=== PATIENT | male | born 1995 | race Caucasian/White ===

== ENCOUNTER 2017-04-30 19:01 | Emergency (ER) | payer BC ==
[2017-04-30 19:05] VITALS: BP 135/71; PULSE 83; TEMP 98; BMI 25.7
--- NOTE | 2017-04-30 20:21 | PDOC ---
History of Present Illness - General History Source: Patient Exam Limitations: No Limitations - History of Present Illness Initial Comments: 04/30/17 20:30 The patient is a 22 year old male, with no significant past medical history, who presents to the emergency department with, progressively worsening right hand pain for approx. 6 hours. 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 The patient reports icing his right hand up until arrival. However, he reports the right hand pain has been progressively worse. The patient states the right hand pain feels similar to a previous boxers fracture he experienced approx. 7 years ago. He denies any numbness, tingling or loss of sensation. He denies any recent head injury or loss of consciousness. He denies any recent chest pain or shortness of breath. Allergies: NKA <Griffin Aggarwal - Last Filed: 04/30/17 20:36> <Anne Marie Smith - Last Filed: 05/01/17 04:22> - General Chief Complaint: Pain, Acute Stated Complaint: R HAND PAIN Time Seen by Provider: 04/30/17 19:18 Past History <Griffin Aggarwal - Last Filed: 04/30/17 20:36> - Past Medical History COPD: No GI Disorders: Yes (ACID REFLUX,CONSTIPATION) - Immunization History Immunization Up to Date: Yes - Suicide/Smoking/Psychosocial Hx Smoking Status: No Smoking History: Unknown if ever smoked Have you smoked in the past 12 months: No Number of Cigarettes Smoked Daily: 0 Information on smoking cessation initiated: No Hx Alcohol Use: No Drug/Substance Use Hx: No Substance Use Type: Alcohol <Anne Marie Smith - Last Filed: 05/01/17 04:22> - Past Medical History Allergies/Adverse Reactions: Allergies Allergy/AdvReac Type Severity Reaction Status Date / Time No Known Allergies Allergy Verified 11/15/14 08:15 Home Medications: Ambulatory Orders NK [No Known Home Medication] 04/30/17 Review of Systems - Review of Systems Comments:: 04/30/17 20:30 GENERAL/CONSTITUTIONAL: No fever or chills. No weakness. HEAD, EYES, EARS, NOSE AND THROAT: No change in vision. No ear pain or discharge. No sore throat. CARDIOVASCULAR: No chest pain or shortness of breath. RESPIRATORY: No cough, wheezing, or hemoptysis. GASTROINTESTINAL: No nausea, vomiting, diarrhea or constipation. GENITOURINARY: No dysuria, frequency, or change in urination. MUSCULOSKELETAL: +Right hand swelling and pain. No neck or back pain. SKIN: No rash NEUROLOGIC: No headache, vertigo, loss of consciousness, or change in strength/ sensation. ENDOCRINE: No increased thirst. No abnormal weight change. HEMATOLOGIC/LYMPHATIC: No anemia, easy bleeding, or history of blood clots. ALLERGIC/IMMUNOLOGIC: No hives or skin allergy. <Griffin Aggarwal - Last Filed: 04/30/17 20:36> *Physical Exam - Vital Signs Last Vital Signs Temp Pulse Resp BP Pulse Ox 98 F 83 14 135/71 100 04/30/17 19:03 04/30/17 19:03 04/30/17 19:03 04/30/17 19:03 04/30/17 19:03 - Physical Exam Comments: 04/30/17 20:31 GENERAL: Awake, alert, and fully oriented, in no acute distress HEAD: No signs of trauma EYES: PERRLA, EOMI, sclera anicteric, conjunctiva clear ENT: Auricles normal inspection, hearing grossly normal, nares patent, oropharynx clear without exudates. Moist mucosa NECK: Normal ROM, supple, no lymphadenopathy, JVD, or masses EXTREMITIES: +Mild edema of the dorsum of the right hand with mild tenderness at the base of the third and fourth metacarpal bones without deformity or ecchymosis. +Pain with extension and flexion of the fingers of the right hand. Remainder of the extremity exam is normal. NEUROLOGICAL: Cranial nerves II through XII grossly intact. Normal speech, normal gait SKIN: Warm, Dry, normal turgor, no rashes or lesions noted. <Griffin Aggarwal - Last Filed: 04/30/17 20:36> - Vital Signs Last Vital Signs Temp Pulse Resp BP Pulse Ox 98 F 83 14 135/71 100 04/30/17 19:03 04/30/17 19:03 04/30/17 19:03 04/30/17 19:03 04/30/17 19:03 <Anne Marie Smith - Last Filed: 05/01/17 04:22> ED Treatment Course - RADIOLOGY Radiograph Interpretation: 04/30/17 20:37 EXAM#: TYPE/EXAM: RESULT: [id number] RAD/HAND- RIGHT Right hand 3 views Clinical information: status post injury, pain There is no radiographic evidence of acute fracture. Minimal to mild deformity of the fifth metacarpal diaphysis is noted consistent with a healed fracture. No dislocation is seen. There is no definite articular pathology. Diffuse soft tissue swelling is noted. Impression: No definite acute fracture is seen. Reported By: Wil Dwyer MD <Griffin Aggarwal - Last Filed: 04/30/17 20:36> - RADIOLOGY Radiology Studies Ordered: Category Date Time Status HAND- RIGHT [RAD] Stat Radiology 04/30/17 19:05 Taken <Anne Marie Smith - Last Filed: 05/01/17 04:22> Progress Note - Progress Note Progress Note: Documentation has been prepared under my direction and personally reviewed by me in its entirety. I attest that this documented accurately reflects all work, treatment, procedures and medical decision making performed by me. 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 Exam as noted. Right hand x-ray interpreted by Dr. Dwyer of radiology staff: No evidence of acute fracture or dislocation. Right hand wrapped in Ankit wrap. Patient should not work for the next 2 days and elevate/ice the area of injury as much as possible. Patient does not have an orthopedist and Dr. Peters is signal intelligence/electronic warfare for hand surgery. He will follow-up with Dr. Peters if there is persistent pain/swelling <Anne Marie Smith - Last Filed: 05/01/17 04:22> *DC/Admit/Observation/Transfer - Attestations Scribe Attestion: 04/30/17 20:36 Documentation prepared by Griffin Aggarwal, acting as ophthalmic medical technician for Anne Marie Smith MD. <Griffin Aggarwal - Last Filed: 04/30/17 20:36> <Anne Marie Smith - Last Filed: 05/01/17 04:22> Diagnosis at time of Disposition: Sprain of right hand Qualifiers: Encounter type: initial encounter Qualified Code(s): S63.91XA - Sprain of unspecified part of right wrist and hand, initial encounter - Discharge Dispostion Disposition: HOME Condition at time of disposition: Stable - Referrals Referrals: Orlando Peters MD [Staff Physician] - - Patient Instructions Printed Discharge Instructions: DI for Hand Injury Additional Instructions: Ice/elevation of right hand as much as possible for the next 48 hours Ankit wrap to hand during the day/off at night for the next 5 days Ibuprofen/naproxen/acetaminophen as needed for pain No work for the next 2 days If pain/swelling persists for more than 5 days, follow-up with Dr. Peters ( hand surgeon) - Post Discharge Activity Forms/Work/School Notes: Back to Work
== END 2017-04-30 20:41 | disposition home or self-care (01) ==
LOC: FER 19:01
DX: S63.91XA Sprain of unspecified part of right wrist and hand, initial encounter (principal); W22.8XXA Striking against or struck by other objects, initial encounter; Y93.89 Activity, other specified; Y92.89 Other specified places as the place of occurrence of the external cause
CPT/HCPCS: 73130-TC-RT-FY; 99282-25

== ENCOUNTER 2017-12-30 09:07 | Emergency (ER) | payer OTHER, BC ==
[2017-12-30 09:25] VITALS: BP 131/77; PULSE 82; TEMP 98.4; BMI 28.5
--- NOTE | 2017-12-30 09:53 | PDOC ---
History of Present Illness - General Chief Complaint: Injury Stated Complaint: INJURY, LT FINGER Time Seen by Provider: 12/30/17 09:33 History Source: Patient Exam Limitations: No Limitations - History of Present Illness Initial Comments: 12/30/17 09:48 22 yr male with injury to the left index finger at work, using a tool it cut the nail, had some bleeding. Past History - Past Medical History Allergies/Adverse Reactions: Allergies Allergy/AdvReac Type Severity Reaction Status Date / Time No Known Allergies Allergy Verified 05/26/17 15:33 Home Medications: Ambulatory Orders NK [No Known Home Medication] 04/30/17 COPD: No GI Disorders: Yes (ACID REFLUX,CONSTIPATION) - Immunization History Immunization Up to Date: Yes - Suicide/Smoking/Psychosocial Hx Smoking Status: No Smoking History: Never smoked Have you smoked in the past 12 months: No Number of Cigarettes Smoked Daily: 0 Hx Alcohol Use: No Drug/Substance Use Hx: No Substance Use Type: None Review of Systems - Review of Systems Able to Perform ROS?: Yes Is the patient limited [place] proficient: No Integumentary: Yes: Symptoms Reported *Physical Exam - Vital Signs Last Vital Signs Temp Pulse Resp BP Pulse Ox 98.4 F 82 18 131/77 99 12/30/17 09:22 12/30/17 09:22 12/30/17 09:22 12/30/17 09:22 12/30/17 09:22 - Physical Exam General Appearance: Yes: Nourished, Appropriately Dressed HEENT: positive: EOMI, CORRINA Neck: positive: Supple Musculoskeletal: positive: Normal Inspection Extremity: positive: Normal Capillary Refill, Other (left index finger with superficial laceration threw the nail, intact, no bleeding now) Integumentary: positive: Normal Color Neurologic: positive: Fully Oriented, Alert, Normal Mood/Affect, Normal Response , Motor Strength 5/5 Procedures - Laceration/Wound Repair Left Distal Finger 2nd digit Wound Length: to 2.5 cm Wound Explored: clean Wound's Depth, Shape: superficial, linear Irrigated w/ Saline: Yes Betadine Prep: Yes Sterile Dressing Applied: Yes Medical Decision Making - Medical Decision Making 12/30/17 09:49 cc: left finger index injury. mild lac threw the nail, the nail intact no bleeding. wound irrigated, bacitracin and bandaid placed wound care inst discussed 12/30/17 09:52 *DC/Admit/Observation/Transfer Diagnosis at time of Disposition: Laceration - Discharge Dispostion Disposition: HOME Condition at time of disposition: Improved - Referrals - Patient Instructions Additional Instructions: keep clean and dry apply bacitracin and bandaid to the wound daily until healed take tylenol or ibuprofen as needed for pain - Post Discharge Activity
== END 2017-12-30 10:31 | disposition home or self-care (01) ==
LOC: JERFT 09:07
DX: S61.311A Laceration without foreign body of left index finger with damage to nail, initial encounter (principal); W27.8XXA Contact with other nonpowered hand tool, initial encounter; Y93.89 Activity, other specified; Y92.69 Other specified industrial and construction area as the place of occurrence of the external cause; Y99.0 Civilian activity done for income or pay
CPT/HCPCS: 99281-25

== ENCOUNTER 2022-02-03 20:28 | Emergency (ER) | payer BC, OTHER ==
[2022-02-03 20:48] VITALS: BP 124/82; PULSE 94; RESP 18; TEMP 98; BMI 23.7
[2022-02-03] MEDS ORDERED: morphine CARPU-JECT 2 MG/1 ML DISP.SYRIN IVPUSH ONE (20:58)
[2022-02-03] MEDS ORDERED: ONDANSETRON 4 MG/2 ML VIAL IVPB ONE (20:58)
[2022-02-03] MEDS ORDERED: SODIUM CHLORIDE 1,000 ML IV SCH (21:00)
[2022-02-03] MEDS ORDERED: morphine SULFATE 4 MG/ML VIAL ONE (21:01)
[2022-02-03] MEDS ORDERED: ONDANSETRON 4 MG/2 ML VIAL ONE (21:02)
[2022-02-03 21:38] LABS: HEMATOCRIT 50.5 % (35.4-49); MCH 31.9 pg (25.7-33.7); MCHC 35.7 g/dl (32.0-35.9); MEAN CELL VOLUME 89.4 fl (80-96); MEAN PLT VOLUME 8.7 fl (7.5-11.1); PLATELET COUNT 158.1 10^3/uL (134-434); RBC 5.65 10^6/uL (4.00-5.60); RDW 13.5 % (11.9-15.9); WHITE BLOOD COUNT 9.6 10^3/uL (4.0-10.8)
[2022-02-03 21:54] LABS: ALBUMIN 5.1 g/dl (3.4-5.0); BILIRUBIN,TOTAL 1.2 mg/dl (0.2-1); CALCIUM 9.3 mg/dl (8.5-10); CREATININE 1.1 mg/dl (0.55-1.3); TOT PROT 8.1 g/dl (6.4-8.2)
[2022-02-03] MEDS ORDERED: HYOSCYAMINE SULFATE 0.125 MG *ODT PO ONE (21:56)
[2022-02-03] MEDS ORDERED: SODIUM CHLORIDE 1,000 ML IV ONE (22:49)
== END 2022-02-03 23:55 | disposition home or self-care (01) ==
LOC: FER 20:28
PROC: 3E033NZ Introduction of Analgesics, Hypnotics, Sedatives into Peripheral Vein, Percutaneous Approach (ICD-10-PCS; principal; 2022-02-03)
PROC: 3E033GC Introduction of Other Therapeutic Substance into Peripheral Vein, Percutaneous Approach (ICD-10-PCS; 2022-02-03)
PROC: 3E0337Z Introduction of Electrolytic and Water Balance Substance into Peripheral Vein, Percutaneous Approach (ICD-10-PCS; 2022-02-03)
DX: R11.2 Nausea with vomiting, unspecified (principal); R19.7 Diarrhea, unspecified
CPT/HCPCS: 36415; 80053; 83690; 85027; 99284-25

== ENCOUNTER 2023-02-23 03:02 | Emergency (ER) | payer OTHER ==
[2023-02-23 03:07] VITALS: BP 117/71; PULSE 75; RESP 18; TEMP 98; BMI 29.9
[2023-02-23] MEDS ORDERED: KETOROLAC TROMETHAMINE 10 MG TABLET PO ONE (04:28)
[2023-02-23] MEDS ORDERED: ACETAMINOPHEN 325 MG TABLET (FP) PO ONE (04:28)
[2023-02-23] MEDS ORDERED: LIDOCAINE 4% PATCH TP ONE ×2 (04:28→04:34)
[2023-02-23] MEDS ORDERED: ACETAMINOPHEN 500 MG TABLET (FP) ONE (04:33)
[2023-02-23] MEDS ORDERED: KETOROLAC TROMETHAMINE 15 MG/ML VIAL IM ONE (04:34)
[2023-02-23] MEDS ORDERED: ACETAMINOPHEN 325 MG TABLET (FP) ONE (04:37)
[2023-02-23] MEDS ORDERED: KETOROLAC TROMETHAMINE 15 MG/ML VIAL ONE (04:39)
== END 2023-02-23 05:04 | disposition home or self-care (01) ==
LOC: JER 03:02
PROC: 3E0233Z Introduction of Anti-inflammatory into Muscle, Percutaneous Approach (ICD-10-PCS; principal; 2023-02-23)
DX: M25.512 Pain in left shoulder (principal)
CPT/HCPCS: 73030-TC-LT-FY; 99284-25